=== PATIENT | male | born 1985 | race Caucasian/White ===

== ENCOUNTER 2016-06-10 14:23 | Emergency (ER) | payer OTHER ==
[~2016-06-10] VITALS: Wt 81.5 kg
[2016-06-10] MEDS ORDERED: GUAI118L22 PO (15:13)
[2016-06-10] MEDS ORDERED: CETI10CA PO (15:13)
--- NOTE | 2016-06-10 15:21 | ERD ---
ER Documentation Chief Complaint Date/Time DATE: 06/10/16 TIME: 15:18 Chief Complaint headache cough congestion and fever for 2 wks HPI This is a 31-year-old male presenting to the emergency department for headache, cough, nasal congestion and tactile fevers 2 weeks. Patient states he has dry nonproductive cough. Has nasal congestion with postnasal drip. Has intermittent headache. Tactile fevers. Patient has not checked his temperature at home. No chills. No chest pain, shortness of breath or difficulty breathing. No sore throat or difficulty swallowing. No drooling. No earache. Patient states he has tried Tylenol and Motrin. ROS All systems reviewed and are negative except as per history of present illness. Medications Home Meds Active Scripts Cetirizine Hcl* (Zyrtec*) 10 Mg Capsule, 10 MG PO DAILY, #10 TAB.CHEW Prov:BREANNA TRUJILLO NP 06/10/16 Guaifenesin/Codeine Phosphate (CHERATUSSIN AC SYRUP) 118 Ml Liquid, 10 ML PO Q6H Y for COUGH, #118 ML Prov:BREANNA TRUJILLO NP 06/10/16 PMhx/Soc Medical and Surgical Hx: pt denies Medical Hx, pt denies Surgical Hx Hx Alcohol Use: No Hx Substance Use: No Hx Tobacco Use: No Smoking Status: Never smoker Physical Exam Vitals Vital Signs Date Time Temp Pulse Resp B/P Pulse Ox O2 Delivery O2 Flow Rate FiO2 06/10/16 14:29 98.2 91 20 128/78 98 Physical Exam Const: NAD, alert Head: Atraumatic Eyes: Normal Conjunctiva ENT: Normal External Ears, Nose and Mouth. No erythema or exudate posterior pharynx. TMs normal bilaterally. Neck: Full range of motion..~ No meningismus. Resp: Clear to auscultation bilaterally. No wheezing, rhonchi or crackles. Cardio: Regular rate and rhythm, no murmurs Abd: Soft, non tender, non distended. Normal bowel sounds Skin: No petechiae or rashes Back: No midline or flank tenderness Ext: No cyanosis, or edema Neur: Awake and alert Psych: Normal Mood and Affect Procedures/MDM ED COURSE: The patient was stable throughout ED course. I kept the patient and/or family informed of laboratory and diagnostic imaging results throughout the ED course. MDM: 31-year-old male presents emergency department for headache, dry nonproductive cough and nasal congestion with tactile fevers 2 weeks. Cough is dry and nonproductive. No fevers or chills. Vital signs are stable. No signs or symptoms of respiratory distress. Patient is calm and comfortable throughout ED visit. Low suspicion for pneumonia, pleural effusion or pneumothorax. Patient likely has URI, viral. Patient is appropriate for outpatient management will be given prescription for Zyrtec and Cheratussin AC syrup. Instructed patient to follow-up with primary care provider in the next week for reassessment and additional management. Return to ED for any high fever, chest pain, difficulty breathing, shortness breath, wheezing, vomiting, diarrhea, abdominal pain or any new or worsening symptoms. Patient verbalizes understanding. All questions answered at discharge. Departure Diagnosis: Primary Impression: URI (upper respiratory infection) URI type: unspecified viral URI Qualified Code: J06.9 - Viral upper respiratory tract infection Condition: Stable Patient Instructions: Uri, Viral, No Abx (Adult) Referrals: HEMA CACERES (PCP) Additional Instructions: Call your primary care doctor TOMORROW for an appointment during the next 2-3 days.See the doctor sooner or return here if your condition worsens before your appointment time. Return to ED for any high fever, chest pain, difficulty breathing, shortness breath, wheezing, vomiting, diarrhea, abdominal pain or any new or worsening symptoms. BREANNA TRUJILLO NP Jun 10, 2016 15:21
== END 2016-06-10 15:32 | disposition home or self-care (01) ==
LOC: FTE 14:23
DX: J06.9 Acute upper respiratory infection, unspecified (principal)
CPT/HCPCS: 99283

== ENCOUNTER 2016-07-30 06:04 | Emergency (ER) | payer OTHER ==
[~2016-07-30] VITALS: Ht 175.3 cm; Wt 86.5 kg
[~2016-07-30 06:04] MED LIST: CETI10CA PO; GUAI118L22 PO
[2016-07-30 06:06] VITALS: Ht 175.3 cm; Wt 86.5 kg
[2016-07-30] MEDS ORDERED: ONDANSETRON 4 MG INJ IV STA ×2 (06:24→08:32)
[2016-07-30] MEDS ORDERED: SOD CHLORIDE 0.9% 1,000 ML IV STA (06:24)
[2016-07-30] MEDS ORDERED: HYDROmorphONE 1 MG/ML SYG IV STA (06:24)
[2016-07-30] MEDS ORDERED: KETOROLAC 15 MG INJ IV STA (06:33)
--- NOTE | 2016-07-30 06:36 | ERD ---
ER Documentation Chief Complaint Date/Time DATE: 07/30/16 TIME: 06:34 Chief Complaint RLQ abd pin since 30 minutes ago HPI Patient is a 31-year-old male who presents with sudden onset, constant, severe, cramping right lower quadrant pain for 1 hour. Patient states that the pain woke him from sleep. He reports having 2 minutes of a similar pain 2 days ago that resolved spontaneously. He reports nausea but no vomiting. No constipation or diarrhea. No dysuria or hematuria. No fever. No flank pain. He reports a history of kidney stone several years ago he states caused him similar pain. He reports pain radiating to the right testicle. ROS All systems reviewed and are negative except as per history of present illness. Medications Home Meds Active Scripts Ondansetron Hcl* (Zofran*) 4 Mg Tablet, 4 MG PO Q8 Y for NAUSEA, #14 TAB Prov:ALEXEY MILLER MD 07/30/16 Ibuprofen* (Motrin*) 600 Mg Tab, 600 MG PO Q8H Y for PAIN, #30 TAB Prov:ALEXEY MILLER MD 07/30/16 Oxycodone HCl/Acetaminophen (Percocet 5-325 mg Tablet) 1 Each Tablet, 1 EACH PO Q4 Y for PAIN LEVEL 6-10, #20 TAB Prov:ALEXEY MILLER MD 07/30/16 Allergies Allergies: Coded Allergies: No Known Allergy (Unverified , 07/30/16) PMhx/Soc Past medical history: Kidney stone Past surgical history: Eyes Social history: Denies tobacco or alcohol. Hx Alcohol Use: No Hx Substance Use: No Hx Tobacco Use: No FmHx Family History: No coronary disease, No diabetes Physical Exam Vitals Vital Signs Date Time Temp Pulse Resp B/P Pulse Ox O2 Delivery O2 Flow Rate FiO2 07/30/16 10:35 98.1 78 16 108/67 96 Room Air 07/30/16 08:00 65 16 110/83 95 Room Air 07/30/16 06:06 98.3 101 20 128/78 98 Physical Exam Const: Alert, in moderate distress Head: Atraumatic Eyes: Normal Conjunctiva, no pallor, no icterus ENT: Normal External Ears, Nose and Mouth. Mucous membranes moist Neck: Full range of motion. No meningismus. Resp: Clear to auscultation bilaterally, no wheezes, no rales Cardio: Regular rate and rhythm, no murmurs Abd: Soft, non tender, non distended. No guarding or rebound Skin: No petechiae or rashes Back: No midline or flank tenderness Ext: No cyanosis, or edema Neur: Awake and alert, cranial nerves II through XII intact bilaterally, strength and sensation full in 4 extremities. Psych: Normal Mood and Affect Result Diagram: 07/30/16 0635 07/30/16 0635 Results 24 hrs Laboratory Tests Test 07/30/16 06:35 07/30/16 09:20 White Blood Count 12.710^3/ul Red Blood Count 5.7010^6/ul Hemoglobin 15.5g/dl Hematocrit 46.5% Mean Corpuscular Volume 81.6fl Mean Corpuscular Hemoglobin 27.2pg Mean Corpuscular Hemoglobin Concent 33.3g/dl Red Cell Distribution Width 12.6% Platelet Count 33702^3/UL Mean Platelet Volume 10.1fl Neutrophils % 49.5% Lymphocytes % 42.9% Monocytes % 5.0% Eosinophils % 1.7% Basophils % 0.6% Nucleated Red Blood Cells % 0.0/100WBC Neutrophils # 6.310^3/ul Lymphocytes # 5.410^3/ul Monocytes # 0.610^3/ul Eosinophils # 0.210^3/ul Basophils # 0.110^3/ul Nucleated Red Blood Cells # 0.010^3/ul Prothrombin Time 12.7Sec Prothrombin Time Ratio 1.0 INR International Normalized Ratio 0.95 Sodium Level 144mmol/L Potassium Level 3.7mmol/L Chloride Level 102mmol/L Carbon Dioxide Level 26mmol/L Anion Gap 20 Blood Urea Nitrogen 14mg/dl Creatinine 1.05mg/dl Glucose Level 122mg/dl Calcium Level 9.5mg/dl Total Bilirubin 0.4mg/dl Direct Bilirubin 0.00mg/dl Indirect Bilirubin 0.4mg/dl Aspartate Amino Transf (AST/SGOT) 25IU/L Alanine Aminotransferase (ALT/SGPT) 39IU/L Alkaline Phosphatase 76IU/L Total Protein 8.4g/dl Albumin 5.1g/dl Globulin 3.30g/dl Albumin/Globulin Ratio 1.54 Lipase 192U/L Urine Color DK. RED Urine Clarity CLOUDY Urine pH 5.0 Urine Specific [place] 1.025 Urine Ketones NEGATIVE Urine Nitrite NEGATIVE Urine Bilirubin 1+ Urine Ictotest NEGATIVE Urine Urobilinogen 0.2 E.U./dL Urine Leukocyte Esterase NEGATIVE Urine Microscopic RBC >200/HPF Urine Microscopic WBC 0-2/HPF Urine Epithelial Cells OCCASIONAL Urine Bacteria MODERATE Urine Yeast FEW Urine Hemoglobin 3+ Urine Glucose NEGATIVE% Urine Total Protein 2+ Current Medications Medications (Trade) Dose Ordered Sig/Antoinette Route PRN Reason Start Time Stop Time Status Last Admin Dose Admin Sodium Chloride (NS) 1,000 ml @ 1,000 mls/hr Q1H STAT IV 07/30/16 06:24 07/30/16 07:23 DC 07/30/16 06:43 Hydromorphone HCl (Dilaudid) 1 mg ONCE STAT IV 07/30/16 06:24 07/30/16 06:25 DC 07/30/16 06:43 Ondansetron HCl (Zofran Inj) 4 mg ONCE STAT IV 07/30/16 06:24 07/30/16 06:25 DC 07/30/16 06:43 Ketorolac Tromethamine (Toradol) 15 mg ONCE STAT IV 07/30/16 06:33 07/30/16 06:35 DC 07/30/16 06:43 Ondansetron HCl (Zofran Inj) 4 mg ONCE STAT IV 07/30/16 08:32 07/30/16 08:33 DC 07/30/16 08:47 Procedures/MDM CT abdomen and pelvis: 4 mm right UVJ stone MDM: Patient is a 31-year-old male who presents with sudden onset of right- sided abdominal pain. He is found to have a 4 mm ureteral stone. There is no evidence of urinary tract infection. The patient was treated with IV fluids and analgesics and had significant relief of symptoms. He is stable for discharge home with expectant management and with prescriptions for Percocet and Zofran. He is advised to return to the ER for fever, severe vomiting, or intractable pain. He is otherwise advised to follow-up with the urologist in the next week and to strain his urine for the stone. Departure Diagnosis: Primary Impression: Ureterolithiasis Additional Impression: Renal colic on right side Condition: ALEXEY Jackson MD Jul 30, 2016 06:36
[2016-07-30 06:50] LABS: ADD SCAN DIFF NO
[2016-07-30 06:56] LABS: ABNORMAL IP MESSAGE 1; BASOPHIL # 0.1 10^3/ul (0.0-0.1); BASOPHILS % 0.6 % (0.0-2.0); EOSINOPHILS # 0.2 10^3/ul (0.0-0.5); EOSINOPHILS % 1.7 % (0.0-7.0); HEMATOCRIT 46.5 % (42.0-52.0); HEMOGLOBIN 15.5 g/dl (14.0-18.0); LYMPHOCYTES # 5.4 10^3/ul (0.8-2.9); LYMPHOCYTES % 42.9 % (15.0-51.0); MEAN CORPUSCULAR HEMOGLOBIN 27.2 pg (29.0-33.0); MEAN CORPUSCULAR HGB CONC 33.3 g/dl (32.0-37.0); MEAN CORPUSCULAR VOLUME 81.6 fl (82.0-101.0); MEAN PLATELET VOLUME 10.1 fl (7.4-10.4); MONOCYTE # 0.6 10^3/ul (0.3-0.9); NEUTROPHIL # 6.3 10^3/ul (1.6-7.5); NEUTROPHILS % 49.5 % (39.0-77.0); PLATELET COUNT 301 10^3/UL (140-415); RED CELL DISTRIBUTION WIDTH 12.6 % (11.5-14.5); WHITE BLOOD COUNT 12.7 10^3/ul (4.8-10.8)
[2016-07-30 07:13] LABS: INR 0.95; PROTIME 12.7 Sec (12.2-14.2)
[2016-07-30 07:16] LABS: ALBUMIN 5.1 g/dl (3.3-4.9); POTASSIUM 3.7 mmol/L (3.5-5.1)
[2016-07-30 07:18] LABS: BILIRUBIN,INDIRECT 0.4 mg/dl (0-1.1); BILIRUBIN,TOTAL 0.4 mg/dl (0.2-1.3); CREATININE 1.05 mg/dl (0.61-1.24)
[2016-07-30 07:19] LABS: ALBUMIN/GLOBULIN RATIO 1.54; CALCIUM 9.5 mg/dl (8.4-10.2); TOTAL PROTEIN 8.4 g/dl (6.1-8.1)
--- NOTE | 2016-07-30 07:32 | RADRPT ---
PROCEDURE: CT of the abdomen and pelvis without contrast CLINICAL INDICATION: Right lower quadrant pain. TECHNIQUE: Spiral CT images through the abdomen and pelvis without the use of contrast. The admin istered radiation dose is CTDI 11.14 and DLP 653.57. One or more of the following dose reduction te chniques were used: automated exposure control, adjustment of the mA and/or kV according to patient size, or use of iterative reconstruction technique. COMPARISON: None FINDINGS: Lack of oral and intravenous contrast somewhat limits evaluation. Slight dependent atelectasis of the lung bases is seen. No pleural effusion is seen. Trace pericardial fluid. The liver, adrenals, and pancreas are unremarkable in appearance. The spleen is minimally enlarged, measuring 13.3 cm in length. There are tiny nonobstructing bilateral renal calyceal stones. Large st is in a right mid pole james and measures 3 mm. There is minimal right pelvicaliectasis and uret erectasis to the level of a 4 mm right mid ureter stone which is at the L4-5 level. No other ureter stones are seen and no stones are seen in the bladder. The gallbladder is grossly unremarkable. N o biliary or pancreatic ductal dilatation is seen.. There is no evidence for bowel obstruction, sanjay e air, or abscess. The appendix is normal in appearance. no evidence for diverticulitis. The pros martinez is normal in size. Moderate stool burden. No adenopathy or ascites is seen. No bony abnormal ity is seen.. IMPRESSION: 4 mm right ureter stone at the L4-5 level with mild pelvicaliectasis and ureterectasis. Additional tiny bilateral nonobstructing renal calyceal stones.. RPTAT: [facility] Physician Ruth Date Time Electronically viewed and signed by Nadiya Simmons Physician on 07/30/2016 07:32 LE/
[2016-07-30 09:55] LABS: ADD UMIC YES; URINE BILIRUBIN (Dip) 1+ (NEGATIVE); URINE BLOOD (Dip) 3+ (NEGATIVE); URINE COLOR DK. RED (YELLOW); URINE GLUCOSE (Dip) NEGATIVE (NEGATIVE); URINE KETONES (Dip) NEGATIVE (NEGATIVE); URINE LEUKOCYTE ESTERASE (Dip) NEGATIVE (NEGATIVE); URINE NITRITE (Dip) NEGATIVE (NEGATIVE); URINE TOTAL PROTEIN (Dip) 2+ (NEGATIVE); URINE UROBILINOGEN (Dip) 0.2 E.U./dL (0.1-1.0)
[2016-07-30 10:00] LABS: BACTERIA,URINE MODERATE; URINE RBCS >200 /HPF (0)
[2016-07-30 10:01] LABS: ICTOTEST NEGATIVE (NEGATIVE)
[2016-07-30] MEDS ORDERED: OXYC-279 PO (10:15)
[2016-07-30] MEDS ORDERED: IBUP-1542 PO (10:15)
[2016-07-30] MEDS ORDERED: ONDA4TAB8 PO (10:15)
[2016-07-30 10:35] VITALS: BP 108/67; PULSE 78; RESP 16; TEMP 98.1
== END 2016-07-30 10:45 | disposition home or self-care (01) ==
LOC: E/R 06:04
DX: N20.2 Calculus of kidney with calculus of ureter (principal); R11.0 Nausea
CPT/HCPCS: 36415; 74176; 80053; 81001; 83690; 85025; 85610; 96361; 96374; 96375; 96376; J1170; J1885; J2405; J7030; Z7502; 81003

== ENCOUNTER 2017-08-31 13:50 | Emergency (ER) | END 2017-08-31 16:29 | disposition home or self-care (01) ==

== ENCOUNTER 2018-08-03 10:47 | Emergency (ER) | payer OTHER ==
[~2018-08-03] VITALS: Ht 177.8 cm; Wt 86.5 kg
[~2018-08-03 10:47] MED LIST changes: -CETI10CA PO; -GUAI118L22 PO; +IBUP-1542 PO; +IBUP800T48 PO; +LEVO500T48 PO; +ONDA4TAB8 PO; +OXYC-279 PO
[2018-08-03 10:56] VITALS: BP 122/82; PULSE 64; RESP 18; Ht 177.8 cm; Wt 86.5 kg
--- NOTE | 2018-08-03 12:09 | ERD ---
ER Documentation Chief Complaint Chief Complaint right eye pain s/p poked with tongue depressor by son today HPI 33-year-old male, presents to the emergency department, complaining of right eye pain after sustaining blunt trauma with a tongue depressor this morning while the patient was playing with his son. ROS All systems reviewed and are negative except as per history of present illness. Medications Home Meds Active Scripts Ibuprofen* (Motrin*) 800 Mg Tab, 800 MG PO Q8, #30 TAB Prov:GLADYS AUSTIN PA-C 08/31/17 Levofloxacin* (Levaquin*) 500 Mg Tablet, 500 MG PO DAILY for 7 Days, TAB Prov:GLADYS AUSTIN PA-C 08/31/17 Ondansetron Hcl* (Zofran*) 4 Mg Tablet, 4 MG PO Q8 PRN for NAUSEA, #14 TAB Prov:ALEXEY MILLER MD 07/30/16 Ibuprofen* (Motrin*) 600 Mg Tab, 600 MG PO Q8H PRN for PAIN, #30 TAB Prov:ALEXEY MILLER MD 07/30/16 Oxycodone HCl/Acetaminophen (Percocet 5-325 mg Tablet) 1 Each Tablet, 1 EACH PO Q4 PRN for PAIN LEVEL 6-10, #20 TAB Prov:ALEXEY MILLER MD 07/30/16 Allergies Allergies: Coded Allergies: No Known Allergy (Unverified , 08/31/17) PMhx/Soc Medical and Surgical Hx: pt denies Medical Hx, pt denies Surgical Hx Hx Alcohol Use: No Hx Substance Use: No Hx Tobacco Use: No Smoking Status: Never smoker Physical Exam Vitals Vital Signs Date Temp Pulse Resp B/P (MAP) Pulse Ox O2 O2 Flow FiO2 Time Delivery Rate 08/03/18 97.2 64 18 122/82 99 10:56 (95) Physical Exam Const: No acute distress Head: Atraumatic Eyes: Normal Conjunctiva ENT: Normal External Ears, Nose and Mouth. Neck: Full range of motion. No meningismus. Resp: Clear to auscultation bilaterally Cardio: Regular rate and rhythm, no murmurs Abd: Soft, non tender, non distended. Normal bowel sounds Skin: No petechiae or rashes Back: No midline or flank tenderness Ext: No cyanosis, or edema Neur: Awake and alert Psych: Normal Mood and Affect JESSICA HURLEY MD August 03, 2018 12:09
--- NOTE | 2018-08-03 12:50 | ERD ---
ER Documentation Chief Complaint Chief Complaint right eye pain s/p poked with tongue depressor by son today HPI 33-year-old male with no reported past medical history who presents with com plaint of right eye pain and blurry vision. Patient states he was playing with his son earlier today around 9 AM when he was accidentally poked in the eye with a tongue depressor by son. That time has had pain to right eye, feeling of foreign body in the eye, with intermittent blurry vision and eye tearing. He otherwise denies blurry vision, bleeding from the eye and is otherwise without complaint. ROS All systems reviewed and are negative except as per history of present illness. Medications Home Meds Active Scripts Ofloxacin* (Ocuflox*) 0.3%-5 Ml Ophth Drops, 1 DROP RIGHT EYE QID for 7 Days, BOTTLE Prov:MARIANO DARLING PA-C 08/03/18 Ibuprofen* (Motrin*) 800 Mg Tab, 800 MG PO Q8, #30 TAB Prov:GLADYS AUSTIN PA-C 08/31/17 Levofloxacin* (Levaquin*) 500 Mg Tablet, 500 MG PO DAILY for 7 Days, TAB Prov:GLADYS AUSTIN PA-C 08/31/17 Ondansetron Hcl* (Zofran*) 4 Mg Tablet, 4 MG PO Q8 PRN for NAUSEA, #14 TAB Prov:ALEXEY MILLER MD 07/30/16 Ibuprofen* (Motrin*) 600 Mg Tab, 600 MG PO Q8H PRN for PAIN, #30 TAB Prov:ALEXEY MILLER MD 07/30/16 Oxycodone HCl/Acetaminophen (Percocet 5-325 mg Tablet) 1 Each Tablet, 1 EACH PO Q4 PRN for PAIN LEVEL 6-10, #20 TAB Prov:ALEXEY MILLER MD 07/30/16 Allergies Allergies: Coded Allergies: No Known Allergy (Unverified , 08/31/17) PMhx/Soc Medical and Surgical Hx: pt denies Medical Hx, pt denies Surgical Hx Hx Alcohol Use: No Hx Substance Use: No Hx Tobacco Use: No Smoking Status: Never smoker FmHx Family History: No diabetes, No coronary disease, No other Physical Exam Vitals Vital Signs Date Temp Pulse Resp B/P (MAP) Pulse Ox O2 O2 Flow FiO2 Time Delivery Rate 08/03/18 97.2 64 18 122/82 99 10:56 (95) Physical Exam Const: No acute distress Head: Atraumatic Eyes: Eye Exam w/ slit lamp: Visual Yeager: Intact in all four quadrants bilaterally Lac ducts/glands: No swelling Lids w/ evertion: Normal, no foreign body Conj/[place]: Clear, corneal abrasion cornea above pupil, negative Nitin's Anterior Chamber: Clear Tonopen readings: Retina exam: No obvious abnormality ENT: Normal External Ears, Nose and Mouth. Neck: Full range of motion. No meningismus. Resp: Clear to auscultation bilaterally Cardio: Regular rate and rhythm, no murmurs Abd: Soft, non tender, non distended. Normal bowel sounds Skin: No petechiae or rashes Back: No midline or flank tenderness Ext: No cyanosis, or edema Neur: Awake and alert Psych: Normal Mood and Affect Results 24 hrs Current Medications Medications Dose Sig/Antoinette Start Time Status Last (Trade) Ordered Route PRN Stop Time Admin Dose Reason Admin Tetracaine 1 drop ONCE ONCE 08/03/18 DC HCl RIGHT EYE 13:00 08/03/18 (Tetracaine 13:01 0.5% Steri-Unit Asya) Fluorescein 1 strip ONCE ONCE 08/03/18 DC Sodium RIGHT EYE 13:00 08/03/18 (Zijcz-M-Rlah 13:01 p) Procedures/MDM 33-year-old male who presents with right eye pain after being poked in eye by his son. I have low suspicion for intraocular emergency warranting further emergency evaluation or treatment. ED course: With evidence of corneal abrasion on slit-lamp exam, no retained f oreign bodies Or discharge with Ocuflox medication and eye care clinic follow-up DISPOSITION PLAN: We discussed follow up with the patient's primary care doctor within 24 to 48 hours. Patient counseled regarding my diagnostic impression and care plan. Prior to discharge all questions answered. Pt agrees with treatment plan and understands strict return precautions. Precautionary instructions provided including instructions to return to the ER if not improving or for any worsening or changing symptoms or concerns. Disclaimer: Inadvertent spelling and grammatical errors are likely due to EHR/dictation software use and do not reflect on the overall quality of patient care. Also, please note that the electronic time recorded on this note does not necessarily reflect the actual time of the patient encounter. Departure Diagnosis: Primary Impression: Eye injury Condition: Stable MARIANO DARLING PA-C August 03, 2018 12:50
[2018-08-03] MEDS ORDERED: FLUORESCEIN STRIP RIGHT EYE ONE (13:00)
[2018-08-03] MEDS ORDERED: TETRACAINE 0.5% 4 ML OPH RIGHT EYE ONE (13:00)
[2018-08-03] MEDS ORDERED: OFLO5DRO46 RIGHT EYE (13:18)
== END 2018-08-03 13:27 | disposition home or self-care (01) ==
LOC: FTE 10:47
DX: S05.01XA Injury of conjunctiva and corneal abrasion without foreign body, right eye, initial encounter (principal); X58.XXXA Exposure to other specified factors, initial encounter; Y92.9 Unspecified place or not applicable
CPT/HCPCS: Z7502; Z7610; 99283